=== PATIENT | female | born 1955 | race Hispanic/Latino ===

== ENCOUNTER → 2023-05-05 | Outpatient (CLI) | payer MEDICARE | END | disposition home or self-care (01) | LOC: RAH 14:00 | PROVIDERS: ATTEND Internal Medicine | DX: Z13.820 Encounter for screening for osteoporosis (principal); N95.2 Postmenopausal atrophic vaginitis; M15.0 Primary generalized (osteo)arthritis | CPT/HCPCS: 77080 ==

== ENCOUNTER → 2024-02-28 | Outpatient (CLI) | payer MEDICARE | END | disposition home or self-care (01) | LOC: RAH 08:58 | PROVIDERS: ATTEND Internal Medicine | DX: M16.11 Unilateral primary osteoarthritis, right hip (principal); M79.604 Pain in right leg | CPT/HCPCS: 73502 ==

== ENCOUNTER → 2024-03-28 | Outpatient (CLI) | payer MEDICARE | END | disposition home or self-care (01) | LOC: RAH 10:14 | PROVIDERS: ATTEND Internal Medicine | DX: M17.11 Unilateral primary osteoarthritis, right knee (principal); M25.461 Effusion, right knee | CPT/HCPCS: 73560 ==

== ENCOUNTER → 2024-05-15 | Outpatient (CLI) | payer MEDICARE ==
--- NOTE | 2024-05-15 13:00 | HMCIMG ---
MR SPINAL CANAL, LUMBAR WO CON REASON: M54.31 Sciatica, right side COMPARISON: None TECHNIQUE: Routine lumbar imaging protocol was performed. Images were obtained from mid body T9 through the mid sacrum. FINDINGS: There are normal-appearing lumbar vertebral bodies. T12-L1 disc interspace is moderately narrowed as are the T9-10 and T10-11 interspaces. Lumbar interspaces appear preserved. Vertebral body alignment is normal. There are no focal osseous lesions. Axial images show moderate to marked degenerative changes and ligamentum flavum and the facets. AP diameter appears preserved, there is no evidence of focal spinal stenosis. Neural foramina appear widely patent. Surrounding soft tissues appear unremarkable. IMPRESSION: 1. Mild lumbar degenerative change. 2. No evidence of disc herniation or focal spinal stenosis.
== END | disposition home or self-care (01) ==
LOC: RAH 10:48
PROVIDERS: ATTEND Internal Medicine
DX: M47.26 Other spondylosis with radiculopathy, lumbar region (principal); M48.04 Spinal stenosis, thoracic region; M54.31 Sciatica, right side; R10.2 Pelvic and perineal pain
CPT/HCPCS: 72148

== ENCOUNTER → 2024-05-23 | Outpatient (CLI) | payer MEDICARE ==
--- NOTE | 2024-05-23 10:59 | HMCIMG ---
CHEST 2VWS HISTORY: Shortness of breath COMPARISON: None FINDINGS: Frontal and lateral projections of the chest were obtained. There is no acute pulmonary infiltrates or failure. The heart is not enlarged. No evidence of aortic calcification is seen. Degenerative changes are seen of the thoracolumbar spine. IMPRESSION: 1. No acute pulmonary infiltrates.
== END | disposition home or self-care (01) ==
LOC: RAH 10:00
PROVIDERS: ATTEND Internal Medicine
DX: R06.02 Shortness of breath (principal); M47.815 Spondylosis without myelopathy or radiculopathy, thoracolumbar region
CPT/HCPCS: 71046